=== PATIENT | female | born 1995 | race Caucasian/White ===

== ENCOUNTER 2022-11-06 14:00 | Emergency (ER) | payer OTHER ==
[~2022-11-06] VITALS: Ht 165.1 cm; Wt 60.0 kg
[2022-11-06 14:02] VITALS: O2SAT 100
[2022-11-06] MEDS ORDERED: METHYLPREDNISOLONE SOD SUCC 125MG/2ML (ACT-O-VIAL) IV STA (14:25)
[2022-11-06] MEDS ORDERED: FAMOTIDINE 20MG/2ML VIAL IV ONE (14:30)
[2022-11-06] MEDS ORDERED: PREDNISONE 20MG TABLET PO ONE (15:15)
[2022-11-06] MEDS ORDERED: FAMOTIDINE 20MG TABLET PO ONE (15:15)
[2022-11-06] MEDS ORDERED: P20 MT (15:45)
[2022-11-06] MEDS ORDERED: EPIN0.3P3 IM (15:45)
[2022-11-06 16:45] VITALS: BP 105/61; PULSE 71; RESP 15; TEMP 97.8
== END 2022-11-06 16:48 | disposition home or self-care (01) ==
LOC: ER 14:00
DX: T78.1XXA Other adverse food reactions, not elsewhere classified, initial encounter (principal); X58.XXXA Exposure to other specified factors, initial encounter
CPT/HCPCS: 99283; J7512; J2930